=== PATIENT | female | born 1955 | race Caucasian/White ===

== ENCOUNTER → 2020-11-20 | Outpatient (CLI) | payer MEDICARE, OTHER ==
[~2020-11-20] MED LIST: ADAL40PE SQ; ALDACTONE; ASPI81TA59 PO; CRESTOR10 MG PO; CYPROHEPTADINE; HYDR200T5 PO; MONT10TA80 PO; NEBI10TA3 PO; PANT40TA3 PO; VALA500T9 PO; asmanex; folic acid; vitamin d
== END ==
LOC: LAB 07:30
PROVIDERS: ATTEND Nurse Anesthetist, Certified Registered
DX: Z01.812 Encounter for preprocedural laboratory examination (principal); Z13.9 Encounter for screening, unspecified; K21.9 Gastro-esophageal reflux disease without esophagitis; Z20.822 Contact with and (suspected) exposure to COVID-19
CPT/HCPCS: U0003; U0005

== ENCOUNTER → 2020-11-24 | Day surgery (SDC) | payer MEDICARE, OTHER ==
[~2020-11-24] MED LIST changes: +IPRATRPIUM/ALBUTEROL 0.5/2.5MG 3 ML NEBU. NEB PRN; +IV RINGERS SOLUTION,LACTATED 1,000 ML IV SCH; +LIDOCAINE 2% PF 5 ML VIAL. ONE; +MIDAZOLAM HCL PF 2 MG/2 ML VIAL. IV ONE; +PROPOFOL 10,000 MCG/ML (20ML) VIAL IV ONE
[2020-11-24 11:29] VITALS: BP 123/94
== END | disposition home or self-care (01) ==
LOC: SURG 09:03
PROVIDERS: ATTEND Emergency Medicine
DX: Z12.11 Encounter for screening for malignant neoplasm of colon (principal); K21.9 Gastro-esophageal reflux disease without esophagitis; K29.70 Gastritis, unspecified, without bleeding; K44.9 Diaphragmatic hernia without obstruction or gangrene; K57.30 Diverticulosis of large intestine without perforation or abscess without bleeding; K63.5 Polyp of colon; I10 Essential (primary) hypertension; Z79.899 Other long term (current) drug therapy; Z88.8 Allergy status to other drugs, medicaments and biological substances; Z79.82 Long term (current) use of aspirin
CPT/HCPCS: 43239; 45380; 88305; 88342; J2001; J2704; J7120